=== PATIENT | male | born 1970 | race Caucasian/White ===

== ENCOUNTER 2017-03-10 19:26 | Emergency (ER) | payer SELFPAY ==
[~2017-03-10] VITALS: Ht 182.9 cm; Wt 90.7 kg
--- NOTE | 2017-03-10 19:26 | NUR ---
PT BIB [facility], [facility]. TAKEN TO [facility]
[2017-03-10 19:30] VITALS: BP 113/55
--- NOTE | 2017-03-10 19:31 | NUR ---
Dr. Campos evaluating patient
[2017-03-10 21:40] VITALS: BP 122/63
--- NOTE | 2017-03-10 21:40 | NUR ---
Patient discharged with v/s stable. Written and verbal after care instructions given and explained. Patient verbalized understanding. Police with in custody. All questions addressed prior to discharge. Advised to follow up with PMD.
== END 2017-03-10 21:40 ==
LOC: MED 19:26
DX: S01.21XA Laceration without foreign body of nose, initial encounter (principal); S09.90XA Unspecified injury of head, initial encounter; V89.2XXA Person injured in unspecified motor-vehicle accident, traffic, initial encounter; Y93.89 Activity, other specified; Y92.411 Interstate highway as the place of occurrence of the external cause; Y99.8 Other external cause status
CPT/HCPCS: 70450; 71010; 72125; 99284